=== PATIENT | male | born 1980 | race Caucasian/White ===

== ENCOUNTER 2018-06-19 11:17 | Inpatient (IN) | payer BC, MEDICAID ==
[2018-06-19] MEDS: NICOTINE 21MG/24HR 1 EA TRANSDERMAL TD (09:00)
[2018-06-19 12:00] LABS: HEMATOCRIT 49.5 % (42.0-52.0); HEMOGLOBIN 16.7 g/dl (13.5-17.5); MEAN CORPUSCULAR HEMOGLOBIN 29.6 pg (27.0-33.0); MEAN CORPUSCULAR HGB CONC 33.7 g/dl (32.0-36.5); MEAN CORPUSCULAR VOLUME 87.8 fl (80.0-96.0); PLATELET COUNT, AUTOMATED 272 10^3/uL (150-450); RED BLOOD COUNT 5.64 10^6/uL (4.30-6.10); RED CELL DISTRIBUTION WIDTH 13.2 % (11.5-14.5); WHITE BLOOD COUNT 9.1 10^3/uL (4.0-10.0)
[2018-06-19 12:33] LABS: ALBUMIN/GLOBULIN RATIO 1.11 (1.00-1.93); ALKALINE PHOSPHATASE 97 U/L (45-117); ALT/SGPT 38 U/L (12-78); AMPHETAMINES LEVEL URINE NEGATIVE (NEGATIVE); ANION GAP 8 MEQ/L (8-16); AST/SGOT 26 U/L (7-37); BARBITURATES URINE NEGATIVE (NEGATIVE); BENZODIAZEPINES URINE POSITIVE (NEGATIVE); BILIRUBIN,DIRECT 0.2 MG/DL (0.0-0.2); BLOOD UREA NITROGEN 11 MG/DL (7-18); CALCIUM LEVEL 9.1 MG/DL (8.5-10.1); CANNABINOIDS URINE POSITIVE (NEGATIVE); CARBON DIOXIDE LEVEL 27 MEQ/L (21-32); CHLORIDE LEVEL 106 MEQ/L (98-107); COCAINE METABOLITE URINE NEGATIVE (NEGATIVE); CREATININE FOR GFR 0.87 MG/DL (0.70-1.30); GLOMERULAR FILTRATION RATE > 60.0 (>60); GLUCOSE, FASTING 90 MG/DL (70-100); METHADONE URINE NEGATIVE (NEGATIVE); OPIATES URINE NEGATIVE (NEGATIVE); PHENCYCLIDINE URINE NEGATIVE (NEGATIVE); POTASSIUM SERUM 4.1 MEQ/L (3.5-5.1); SALICYLATE LEVEL 3.7 MG/DL (5.0-30.0); SODIUM LEVEL 141 MEQ/L (136-145); TOTAL PROTEIN 7.6 GM/DL (6.4-8.2)
[2018-06-19 12:36] LABS: ETHYL ALCOHOL (ETHANOL) < 0.003 % (0.000-0.010)
[2018-06-19 12:37] LABS: ACETAMINOPHEN LEVEL < 2.0 UG/ML (10.0-30.0)
[2018-06-19] MEDS ORDERED: MAALOX 30 ML SUSP *UDC PO (14:30)
[2018-06-19] MEDS ORDERED: MOM 30ML SUSPENSION UDC PO (14:30)
[2018-06-19] MEDS ORDERED: IBUPROFEN 400 MG TAB PO (16:30)
[2018-06-19] MEDS: traZODone 50 MG TAB PO (21:27)
[2018-06-19] MEDS: FAMOTIDINE 20 MG TAB PO (21:27)
[2018-06-19] MEDS: PREGABALIN 100 MG CAP (LYRICA) PO (21:27)
[2018-06-19] MEDS: LORazepam 1 MG TAB PO (21:27)
[2018-06-19] MEDS: ACETAMINOPHEN TAB 650MG DOSE (2X325MG) PO (21:28)
[2018-06-20] MEDS: NICOTINE 21MG/24HR 1 EA TRANSDERMAL TD (08:08)
[2018-06-20] MEDS: PREGABALIN 100 MG CAP (LYRICA) PO ×2 (08:08→20:35)
[2018-06-20] MEDS: FAMOTIDINE 20 MG TAB PO ×2 (08:08→20:35)
[2018-06-20] MEDS: LORazepam 1 MG TAB PO (13:25)
[2018-06-20] MEDS: FLUoxetine 20 MG CAP PO (13:49)
[2018-06-20] MEDS: BUPRENORPHINE/NALOXONE 8-2MG SUBLINGUAL TABLET(SUBOXONE) SL (13:49)
[2018-06-20] MEDS: traZODone 50 MG TAB PO (20:35)
[2018-06-20] MEDS: BUPRENORPHINE/NALOXONE 2-0.5MG SUBLINGUAL TABLET(SUBOXONE) SL (20:35)
[2018-06-21] MEDS: FAMOTIDINE 20 MG TAB PO ×2 (08:13→20:24)
[2018-06-21] MEDS: FLUoxetine 20 MG CAP PO (08:14)
[2018-06-21] MEDS: NICOTINE 21MG/24HR 1 EA TRANSDERMAL TD (08:14)
[2018-06-21] MEDS: PREGABALIN 100 MG CAP (LYRICA) PO ×2 (08:14→20:25)
[2018-06-21] MEDS: BUPRENORPHINE/NALOXONE 8-2MG SUBLINGUAL TABLET(SUBOXONE) SL (08:14)
[2018-06-21] MEDS: PROPRANOLOL 10 MG TAB PO ×2 (12:44→20:25)
[2018-06-21] MEDS: BUPRENORPHINE/NALOXONE 2-0.5MG SUBLINGUAL TABLET(SUBOXONE) SL (20:25)
[2018-06-21] MEDS: traZODone 50 MG TAB PO (20:25)
[2018-06-22] MEDS: FLUoxetine 20 MG CAP PO (08:02)
[2018-06-22] MEDS: FAMOTIDINE 20 MG TAB PO (08:02)
[2018-06-22] MEDS: BUPRENORPHINE/NALOXONE 8-2MG SUBLINGUAL TABLET(SUBOXONE) SL (08:02)
[2018-06-22] MEDS: PREGABALIN 100 MG CAP (LYRICA) PO (08:02)
[2018-06-22] MEDS: NICOTINE 21MG/24HR 1 EA TRANSDERMAL TD (08:04)
== END 2018-06-22 11:30 | disposition home or self-care (01) | DRG 751 ==
LOC: M ED 11:17 → M ED INP 14:19 → M PSY 15:28
DX: F33.2 Major depressive disorder, recurrent severe without psychotic features (principal); F11.10 Opioid abuse, uncomplicated; F12.180 Cannabis abuse with cannabis-induced anxiety disorder; F43.10 Post-traumatic stress disorder, unspecified; F17.210 Nicotine dependence, cigarettes, uncomplicated; K21.9 Gastro-esophageal reflux disease without esophagitis; M54.5 Low back pain; Z63.0 Problems in relationship with spouse or partner; Z56.0 Unemployment, unspecified; Z79.899 Other long term (current) drug therapy